=== PATIENT | female | born 1970 | race Two or more races ===

== ENCOUNTER 2025-10-02 16:37 | Emergency (ER) | payer OTHER, SELFPAY ==
[2025-10-02 16:43] VITALS: BP 139/71
--- NOTE | 2025-10-02 18:22 | ED.GENMED ---
History of Present Illness
General
Chief Complaint: Eye Problems
Time Seen by Provider: 10/02/25 17:48
History of Present Illness
History of Present Illness:
54-year-old female presents to the emergency department for evaluation of right eye discomfort after accidentally poked herself in the eye with a cinnamon stick. She has blurry vision and a foreign body sensation
Review of Systems
Review of Systems
Allergies reviewed?: Yes
All Other Systems: ROS reviewed and negative except as documented in HPI and ROS
Phy Exam
Physical Exam
Physical Exam:
GEN: Well appearing, NAD, WDWN
HEENT: Oral mucosa moist, no scleral icterus. Mild conjunctival injection on the right, extraocular motions normal. Fluorescein stain reveals a centrally located corneal abrasion with no Sidel sign, no hyphema
Cardiac: Regular rate
Lung: No respiratory distress, no tachypnea
MSK: No gross deformity or injuries
Skin: Good color, no pallor or jaundice, no rashes
Neuro: AO x3, moves all extremities freely
Psych: Calm, cooperative
Course
Orders/Labs/Results
Orders:
Orders
10/02/25 18:44
Fluorescein Sodium [Ful-Gertrude] 1 mg .ROUTE .STK-MED ONE
Tetracaine HCl [Tetracaine 0.5% Ophthalmic Solution] 1 drop .ROUTE .STK-MED ONE
Vital Signs
Initial and Last Documented VS:
Initial Vital Signs
Temp Pulse Resp BP Pulse Ox
98.3 F 68 16 139/71 98
10/02/25 16:43 10/02/25 16:43 10/02/25 16:43 10/02/25 16:43 10/02/25 16:43
Last Documented Vital Signs
Temp Pulse Resp BP Pulse Ox
98.3 F 68 16 139/71 98
10/02/25 16:43 10/02/25 16:43 10/02/25 16:43 10/02/25 16:43 12/17/25 18:23
MDM/Problems Addressed
MDM/Problems Addressed:
Corneal abrasion identified, no visible foreign body. Prescribed erythromycin, discussed supportive care, I provided her with the tetracaine bottle and advised to use over the next 48 hours every 2 hours
*Pulse Oximetry
SaO2: 98
Oxygen Mode of Delivery: Room air
Patient hypoxic: no
*Critical Care Note
Total Time (30-74mins, 75-104mins- exclusive of procedures): Not Applicable
ED Attending Note
-
Portions of this chart may have been created with voice recognition software.� Occasional wrong word or��sound alike� substitutions may have occurred due to the inherent limitations of voice recognition software.
Discharge Plan
Departure
Patient Disposition: Home (Routine Discharge)
Date of Disposition: 10/02/25
Time of Disposition: 18:22
Patient with high blood pressure during this ER visit?: No
Discharge Problem:
Abrasion of cornea, right
Instructions: Corneal Abrasion (DC)
Prescriptions:
New
erythromycin 5 mg/gram (0.5 %) ointment
0.5 inch ophthalmic (eye) TID 5 Days Qty: 3.5 0RF
Referrals:
Agnes Aranda MD [Family Provider, Family Practice]
Activity Restrictions/Additional Instructions:
Use the numbing drops every 2 hours for the next 1-2 days. Do not use for longer than 2 days
This will heal in 2-3 days
Interventions
Interventions:
*General Assessment Last Done: 10/02/25 16:43
*Neglect/Abuse Screening Last Done: 10/02/25 16:43
*ED COVID-19 Vaccine History Last Done: 10/02/25 16:43
*ED Influenza Vaccine History Last Done: 10/02/25 16:43
*Risk Screen - Suicide (C-SSRS) Last Done: 10/02/25 16:46
*Nursing Disposition Last Done: 10/02/25 18:51
Discharge Date and Time
Discharge Date/Time: 10/02/25 18:51
Print Language: [place]
== END 2025-10-02 18:51 | disposition home or self-care (01) ==
LOC: EMR 16:37
PROVIDERS: EMERGENCY PHYSICIAN Emergency Medicine; FAMILY PHYSICIAN Family Medicine
DX: S05.01XA Injury of conjunctiva and corneal abrasion without foreign body, right eye, initial encounter (principal); W22.8XXA Striking against or struck by other objects, initial encounter
CPT/HCPCS: 99283